=== PATIENT | male | born 1960 | race African-American/Black ===

== ENCOUNTER 2020-12-26 14:13 | Emergency (ER) | payer MEDICARE, MEDICAID ==
[~2020-12-26] VITALS: Ht 182.9 cm; Wt 88.6 kg
[2020-12-26 14:44] VITALS: BP 116/70
[2020-12-26] MEDS ORDERED: IBUPROFEN 800 MG TABLET PO ONE (15:00)
== END 2020-12-26 15:20 | disposition home or self-care (01) ==
LOC: EMS 14:27
DX: J02.9 Acute pharyngitis, unspecified (principal); J35.9 Chronic disease of tonsils and adenoids, unspecified; F17.210 Nicotine dependence, cigarettes, uncomplicated; F19.90 Other psychoactive substance use, unspecified, uncomplicated; G89.29 Other chronic pain
CPT/HCPCS: 99283